=== PATIENT | male | born 1965 | race Caucasian/White ===

== ENCOUNTER 2020-07-01 23:21 | Emergency (ER) | payer OTHER, SELFPAY ==
[2020-07-01 23:33] VITALS: BP 135/84; PULSE 86; RESP 18; TEMP 36.4; O2SAT 96
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
== END 2020-07-02 00:51 | disposition home or self-care (01) ==
LOC: ANHED 07-02 00:42
PROVIDERS: Emergency Provider Emergency Medicine
DX: S16.1XXA Strain of muscle, fascia and tendon at neck level, initial encounter (principal); V86.59XA Driver of other special all-terrain or other off-road motor vehicle injured in nontraffic accident, initial encounter
CPT/HCPCS: 99282